=== PATIENT | female | born 1940 | race Caucasian/White ===

== ENCOUNTER 2017-09-29 10:10 | Day surgery (SDC) | payer MEDICARE, BC ==
[~2017-09-29 10:10] MED LIST: Lactated Ringers 1,000 ML IV SCH
[2017-09-29] MEDS ORDERED: Propofol 200 MG/20 ML SDV ONE (11:20)
[2017-09-29] MEDS ORDERED: Ondansetron 4 MG/2 ML SDV ONE (11:29)
[2017-09-29 13:11] VITALS: BP 122/76
--- NOTE | 2017-09-30 08:44 | OR ---
PREOPERATIVE DIAGNOSIS: History of colon polyps. POSTOPERATIVE DIAGNOSIS: History of colon polyps. PROCEDURE PERFORMED: Colonoscopy. INDICATION: The patient is a 77-year-old female with a history of colon polyps. Her last scope was about 3 years ago, presents for repeat colonoscopy at this time. PROCEDURE IN DETAIL: Done in the endoscopy suite. Sedation was given per Anesthesia. She was placed in left lateral position. First, a rectal exam was done, it was normal. Scope was introduced into the rectum, slowly advanced to the rectum, sigmoid, descending, transverse, and ascending colon until the cecum was reached. Upon reaching the cecum, the scope was slowly withdrawn looking at all mucosal surfaces on the way out. No mucosal abnormalities, lesions, or polyps were noted. FINAL DIAGNOSIS: Normal colonoscopy. BKD: 09/29/2017 12:35:23 MODL: 09/29/2017 20:28:13 /[id number]
== END 2017-09-29 13:41 | disposition home or self-care (01) ==
LOC: VM.SDS 10:10
PROVIDERS: ATTEND Surgery
DX: Z12.11 Encounter for screening for malignant neoplasm of colon (principal); E07.9 Disorder of thyroid, unspecified; Z88.8 Allergy status to other drugs, medicaments and biological substances; Z90.49 Acquired absence of other specified parts of digestive tract; Z90.710 Acquired absence of both cervix and uterus; Z98.890 Other specified postprocedural states; Z79.899 Other long term (current) drug therapy; Z86.010 Personal history of colon polyps
CPT/HCPCS: 00812; G0121; J2405; J2704; J7120

== ENCOUNTER 2020-01-22 17:19 | Emergency (ER) | payer MEDICARE, BC ==
[2020-01-22] MEDS ORDERED: fentaNYL 100 MCG/2 ML SDV IM ONE (18:32)
--- NOTE | 2020-01-22 18:33 | EDM.PDOC ---
ED HPI GENERAL MEDICAL PROBLEM - General Chief Complaint: Lower Extremity Injury/Pain Stated Complaint: ER Time Seen by Provider: 01/22/20 17:45 Source of Information: Reports: Patient, Family History Limitations: Reports: No Limitations - History of Present Illness INITIAL COMMENTS - FREE TEXT/NARRATIVE: Patient presents to ER with complaints of right hip pain after a fall. Was out spraying, missed a step and fell and landed on the deck. Landed on right side, has pain with movement of right hip. No head trauma, no loss of consciousness. No anticoagulants. She was assisted to the car by her nephew. States had increased pain with weight bearing. Is currently wearing a cam boot on her left leg from a previous fracture sustained 4 weeks ago. Onset: Today, Sudden Duration: Minutes:, Constant Location: Reports: Lower Extremity, Right Quality: Reports: Ache Severity: Mild Improves with: Reports: Rest Worsens with: Reports: Movement Context: Reports: Trauma Associated Symptoms: Denies: Confusion, Chest Pain, Cough, Fever/Chills, Loss of Appetite, Nausea/Vomiting, Shortness of Breath - Related Data Allergies Allergy/AdvReac Type Severity Reaction Status Date / Time cefadroxil hydrate Allergy Other Verified 09/29/17 10:40 [From [place]] Home Meds: Home Meds Levothyroxine Sodium 50 mcg PO DAILY 12/03/14 [History] Calcium Carbonate [Calcium] 500 mg PO DAILY 09/25/17 [History] Cholecalciferol (Vitamin D3) [D3-2000] 2,000 unit PO DAILY 09/25/17 [History] Fexofenadine [[place]] 180 mg PO DAILY 09/25/17 [History] Glucosam/Chond/Collagen/Hyalur [Glucosamine Chondroitin] 1 cap PO DAILY 09/25/17 [History] Lutein 10 mg PO DAILY 09/25/17 [History] [place]-3 Fatty Acids [[place]-3] 1,000 mg PO DAILY 09/25/17 [History] Ubidecarenone [Co Q-10] 100 mg PO DAILY 09/25/17 [History] Vitamin E 400 unit PO DAILY 09/25/17 [History] Past Medical History Gastrointestinal History: Reports: Colon Polyp [employer] History: Reports: Ectopic , Other (See Below) Other [employer]ITAL[employer] History: ovarian cyst removal Musculoskeletal History: Reports: Osteoarthritis, Other (See Below) Other Musculoskeletal History: bunions. hammer toe. foot deformity Endocrine/Metabolic History: Reports: Hypothyroidism, Osteopenia Hematologic History: Reports: Anemia - Past Surgical History GI Surgical History: Reports: Appendectomy, Colonoscopy Female Surgical History: Reports: D&C, Hysterectomy Social & Family History - Tobacco Use Smoking Status *Q: Unknown Ever Smoked Review of Systems - Review of Systems Review Of Systems: See Below Constitutional: Denies: Chills, Diaphoresis, Fever, Weakness Eyes: Reports: No Symptoms Ears: Denies: Dizziness, Pain, Tinnitus Nose: Reports: No Symptoms Mouth/Throat: Reports: No Symptoms Respiratory: Denies: Shortness of Breath, Cough Cardiovascular: Denies: Chest Pain, Palpitations, Syncope GI/Abdominal: Denies: Abdominal Pain, Nausea, Vomiting Genitourinary: Reports: No Symptoms Musculoskeletal: Reports: Leg Pain, Joint Pain Skin: Reports: No Symptoms ED EXAM, GENERAL - Physical Exam Exam: See Below Exam Limited By: No Limitations General Appearance: Alert, WD/WN, No Apparent Distress Ears: Normal External Exam, Normal TMs Nose: Normal Inspection, Normal Mucosa, No Blood Throat/Mouth: Normal Inspection, Normal Oropharynx Head: Normocephalic Neck: Normal Inspection, Supple, Non-Tender Respiratory/Chest: No Respiratory Distress, Lungs Clear, Normal Breath Sounds Cardiovascular: Regular Rate, Rhythm GI/Abdominal: Normal Bowel Sounds, Soft, Non-Tender Extremities: Leg Pain, Limited Range of Motion, Other (right hip is tender with palpation, increased pain with movement. RLE is externally rotated. Is wearing a cam boot to LLE) Neurological: Alert, Oriented Skin Exam: Warm, Dry Course - Orders/Labs/Meds Orders: Active Orders 24 hr Category Date Time Status Femur Min 2V Rt [CR] Stat Exams 01/22/20 17:45 Taken Meds: Medications Discontinued Medications Generic Name Dose Route Start Last Admin Trade Name Freq PRN Reason Stop Dose Admin Fentanyl 25 mcg 01/22/20 18:32 Sublimaze IM 01/22/20 18:33 ONETIME ONE - Re-Assessments/Exams Free Text/Narrative Re-Assessment/Exam: 01/22/20 18:20 Contacted [facility] and spoke with Dr. Sandoval in regards to positive xray of right intratrochanteric hip fracture. Agreed to accept the patient in transfer. Departure - Departure Time of Disposition: 18:47 Disposition: DC/Tfer to Acute Hospital 02 Condition: Fair Clinical Impression: Intertrochanteric fracture, hip - Discharge Information *PRESCRIPTION DRUG MONITORING PROGRAM REVIEWED*: No *COPY OF PRESCRIPTION DRUG MONITORING REPORT IN PATIENT YADI: No Referrals: Emily Obrien DO [Primary Care Provider] - Forms: ED Department Discharge, Interfacility Transfer [facility]EROY Additional Instructions: Transfer to Dr. Sandoval at [facility] per BLS. Fentanyl given prior to departure. - My Orders Last 24 Hours: My Active Orders 01/22/20 17:45 Femur Min 2V Rt [CR] Stat - Assessment/Plan Last 24 Hours: My Active Orders 01/22/20 17:45 Femur Min 2V Rt [CR] Stat
[2020-01-22 18:46] VITALS: BP 171/85; PULSE 61
--- NOTE | 2020-01-22 19:01 | CR ---
[id number] RAD/RAD Femur Right 2V EXAM: RAD Femur Right 2V CLINICAL DATA: TRAUMA COMPARISON: NO PREVIOUS SIMILAR EXAM IS AVAILABLE. FINDINGS: A subcapital fracture of the right hip is seen with varus angulation. IMPRESSION: RIGHT HIP FRACTURE DESCRIBED Denny Lawson MD 01/22/20 [id number] Thank you for allowing us to participate in the care of your patient.
== END 2020-01-22 19:05 | disposition short-term general hospital (02) ==
LOC: VM.ED 17:19
DX: S72.141A Displaced intertrochanteric fracture of right femur, initial encounter for closed fracture (principal); E03.9 Hypothyroidism, unspecified; Z88.8 Allergy status to other drugs, medicaments and biological substances; Z90.49 Acquired absence of other specified parts of digestive tract; Z90.710 Acquired absence of both cervix and uterus; Z79.899 Other long term (current) drug therapy; W10.9XXA Fall (on) (from) unspecified stairs and steps, initial encounter
CPT/HCPCS: 73552; 96372; 99284; J3010

== ENCOUNTER 2022-11-14 08:15 | Inpatient (IN) | payer MEDICARE, BC ==
[2022-11-14 08:52] LABS: HEMATOCRIT 35.6 % (33.0-47.0); MEAN CORPUSCULAR HEMOGLOBIN 31.9 pg (26.0-32.0); MEAN CORPUSCULAR HGB CONC 33.7 g/dL (32.0-36.0); MEAN CORPUSCULAR VOLUME 94.7 fL (78.0-93.0); PLATELET COUNT,PLT 81 x10^3/uL (130-400); RED BLOOD CELL COUNT 3.76 x10^6/uL (4.00-5.50)
[2022-11-14 08:55] LABS: WHITE BLOOD CELL COUNT,WBC 20.6 x10^3/uL (4.0-10.0)
[2022-11-14 09:05] LABS: BLOOD UREA NITROGEN,BUN 31 mg/dL (7-18); CALCIUM 8.7 mg/dL (8.5-10.1); CARBON DIOXIDE,CO2 21 mmol/L (21-32); CHLORIDE,CL 105 mmol/L (98-107); CREATININE 2.3 mg/dL (0.55-1.02); GLUCOSE RANDOM 98 mg/dL (70-99); SODIUM,NA 142 mmol/L (136-145)
[2022-11-14 09:09] LABS: LACTIC ACID 4.9 mmol/L (0.4-2.0)
[2022-11-14 09:10] LABS: ESTIMATED GFR 20 mL/min (>=60)
[2022-11-14] MEDS ORDERED: cefTRIAXone 1 GM Vial IVPUSH ONE (09:10)
[2022-11-14] MEDS ORDERED: Sodium Chloride 0.9% 1,000 ML IV ONE ×2 (09:18)
[2022-11-14 09:25] LABS: BAND PERCENT MAN 11 % (0-6); BASOPHILS PERCENT MAN 1 % (0-1); LYMPHOCYTES PERCENT MAN 8 % (25-50); MONOCYTES PERCENT MAN 6 % (2-11); NEUTROPHILS ABSOLUTE MAN 20.6 x10^3/uL (1.8-7.7)
[2022-11-14 09:26] LABS: EOSINOPHILS PERCENT MAN 3 % (0-4); SEG NEUTROPHILS PERCENT MAN 71 % (50-80)
[2022-11-14 09:27] LABS: PLATELET COUNT ESTIMATE ADEQUATE
[2022-11-14 09:33] LABS: APPEARANCE,URINE CLEAR (CLEAR); BILIRUBIN,URINE MODERATE (NEGATIVE); COLOR,URINE AMBER (YELLOW); GLUCOSE,URINE NEGATIVE (NEGATIVE); KETONES,URINE TRACE mg/dL (NEGATIVE); LEUKOCYTE ESTERASE,URINE NEGATIVE (NEGATIVE); NITRITE,URINE NEGATIVE (NEGATIVE); OCCULT BLOOD,URINE TRACE-INTACT (NEGATIVE); PROTEIN,URINE 30 mg/dL (NEGATIVE); UROBILINOGEN,URINE 0.2 EU/dL (0.2)
[2022-11-14 09:46] LABS: RBC,URINE 0-5 /HPF (NOT SEEN)
[2022-11-14 09:47] LABS: BACTERIA,URINE NOT SEEN /HPF (NOT SEEN); HYALINE CASTS,URINE RARE; MUCUS,URINE NOT SEEN /LPF (NOT SEEN); SQUAMOUS EPITHELIAL CELLS,UR NOT SEEN /HPF (NOT SEEN); WBC,URINE 0-5 /HPF (NOT SEEN)
[2022-11-14] MEDS ORDERED: Ondansetron 4 MG Tab.DIS PO PRN (11:59)
[2022-11-14] MEDS: Sodium Chloride 0.9% 1,000 ML IV SCH ×2 (13:19→22:48)
[2022-11-14 13:58] LABS: LACTIC ACID 2.9 mmol/L (0.4-2.0)
[2022-11-14 14:18] LABS: CORONAVIRUS COVID-19 NAA NEGATIVE (NEGATIVE)
[2022-11-14 14:19] LABS: INFLUENZA A NAA NEGATIVE (NEGATIVE); INFLUENZA B NAA NEGATIVE (NEGATIVE); RESPIRATORY SYNCYTIAL VIR NAA NEGATIVE (NEGATIVE)
[2022-11-14] MEDS: Piperacillin/Tazobactam 3.375 GM in Sodium Chloride 0.9% 100 ML IV SCH (18:37)
[2022-11-14] MEDS ORDERED: Sodium Chloride 0.9% 500 ML IV ONE (18:55)
[2022-11-14] MEDS: Sennosides 8.6 MG Tab PO SCH (20:57)
[2022-11-14] MEDS: Beta-Carotene (Vitamin A) w/Vitamin C & E plus Minerals Tab PO SCH (20:59)
[2022-11-14] MEDS: Heparin Sodium 5,000 Units/ML Vial SUBCUT SCH ×2 (21:00→21:26)
[2022-11-14] MEDS ORDERED: Heparin Sodium 5,000 Units/ML Vial SUBCUT SCH (21:00)
[2022-11-15] MEDS: Piperacillin/Tazobactam 3.375 GM in Sodium Chloride 0.9% 100 ML IV SCH ×2 (06:06→18:53)
[2022-11-15] MEDS: Sodium Chloride 0.9% 1,000 ML IV SCH ×2 (06:12→20:53)
[2022-11-15] MEDS: Heparin Sodium 5,000 Units/ML Vial SUBCUT SCH (06:33)
[2022-11-15 06:40] LABS: BILIRUBIN,URINE NEGATIVE (NEGATIVE); COLOR,URINE YELLOW (YELLOW); GLUCOSE,URINE NEGATIVE (NEGATIVE); KETONES,URINE NEGATIVE (NEGATIVE); LEUKOCYTE ESTERASE,URINE NEGATIVE (NEGATIVE); NITRITE,URINE NEGATIVE (NEGATIVE); OCCULT BLOOD,URINE NEGATIVE (NEGATIVE); PH,URINE 5.5 (5.0-8.0); PROTEIN,URINE TRACE mg/dL (NEGATIVE); UROBILINOGEN,URINE 0.2 EU/dL (0.2)
[2022-11-15 06:41] LABS: APPEARANCE,URINE CLEAR (CLEAR)
[2022-11-15 06:42] LABS: HEMATOCRIT 31.3 % (33.0-47.0); HEMOGLOBIN 10.4 g/dL (12.0-16.0); MEAN CORPUSCULAR HEMOGLOBIN 31.7 pg (26.0-32.0); MEAN CORPUSCULAR HGB CONC 33.2 g/dL (32.0-36.0); MEAN CORPUSCULAR VOLUME 95.4 fL (78.0-93.0); PLATELET COUNT,PLT 74 x10^3/uL (130-400); RED BLOOD CELL COUNT 3.28 x10^6/uL (4.00-5.50); WHITE BLOOD CELL COUNT,WBC 15.2 x10^3/uL (4.0-10.0)
[2022-11-15 06:50] LABS: BACTERIA,URINE RARE /HPF (NOT SEEN); HYALINE CASTS,URINE FEW; MUCUS,URINE OCCASIONAL /LPF (NOT SEEN); RBC,URINE 0-5 /HPF (NOT SEEN); SQUAMOUS EPITHELIAL CELLS,UR FEW /HPF (NOT SEEN); WBC,URINE 0-5 /HPF (NOT SEEN)
[2022-11-15] MEDS: Levothyroxine 25 MCG Tab PO SCH (07:04)
[2022-11-15] MEDS: Levothyroxine 50 MCG Tab PO SCH (07:04)
[2022-11-15 07:11] LABS: A/G RATIO 0.78; ALBUMIN 2.1 g/dL (3.4-5.0); ANION GAP 15.4 mmol/L (5-15); BILIRUBIN TOTAL 1.6 mg/dL (0.2-1.0); CALCIUM 7.2 mg/dL (8.5-10.1); CREATININE 1.3 mg/dL (0.55-1.02); EST CRCL DRUG DOSING (CG) 23.14 mL/min; POTASSIUM,K 3.4 mmol/L (3.5-5.1); PROTEIN TOTAL,TP 4.8 g/dL (6.4-8.2); VANCOMYCIN RANDOM 7.7 ug/mL (5.0-10.0)
[2022-11-15 07:12] LABS: BAND PERCENT MAN 19 % (0-6); LYMPHOCYTES ABSOLUTE MAN 0.9 x10^3/uL (1.0-4.8); LYMPHOCYTES PERCENT MAN 6 % (25-50); MONOCYTES ABSOLUTE MAN 0.3 x10^3/uL (0.0-0.8); MONOCYTES PERCENT MAN 2 % (2-11); MYELOCYTE PERCENT MAN 5 % (0); NEUTROPHILS ABSOLUTE MAN 12.9 x10^3/uL (1.8-7.7); PROMYELOCYTE PERCENT MAN 2 % (0); SEG NEUTROPHILS PERCENT MAN 66 % (50-80)
[2022-11-15 07:14] LABS: HYPOCHROMASIA 2+ MODERATE; PLATELET COUNT ESTIMATE DECREASED
[2022-11-15] MEDS ORDERED: Potassium Chloride 20 MEQ Tab.ER PO ONE (08:10)
[2022-11-15] MEDS ORDERED: Calcium Carbonate 750 MG Tab.Chew PO ONE (09:00)
[2022-11-15] MEDS: Ascorbic Acid 500 MG Tab PO SCH (09:58)
[2022-11-15] MEDS: Beta-Carotene (Vitamin A) w/Vitamin C & E plus Minerals Tab PO SCH ×2 (09:58→20:52)
[2022-11-15] MEDS: Magnesium Chloride 64 MG Tab.ER PO SCH (09:58)
[2022-11-15] MEDS: Calcium Carbonate/Vitamin D3 1250 MG-5 MCG Tab PO SCH ×2 (09:59→10:20)
[2022-11-15] MEDS: Cholecalciferol (Vitamin D3) 25 MCG Tab PO SCH (09:59)
[2022-11-15] MEDS: UBIDECARENONE 10 MG PO SCH (10:51)
[2022-11-15] MEDS: Acetaminophen 325 MG Tab PO PRN (17:56)
[2022-11-15] MEDS: Sennosides 8.6 MG Tab PO SCH (20:52)
[2022-11-16] MEDS: Levothyroxine 25 MCG Tab PO SCH (06:03)
[2022-11-16] MEDS: Levothyroxine 50 MCG Tab PO SCH (06:03)
[2022-11-16] MEDS: Piperacillin/Tazobactam 3.375 GM in Sodium Chloride 0.9% 100 ML IV SCH ×2 (06:04→18:47)
[2022-11-16 08:11] LABS: BASOPHILS PERCENT AUTO 0.2 % (0.2-1.2); EOSINOPHILS ABSOLUTE AUTO 0.3 x10^3/uL (0.0-0.5); EOSINOPHILS PERCENT AUTO 2.5 % (0.0-4.0); HEMATOCRIT 32.5 % (33.0-47.0); IMMATURE GRAN ABSOLUTE AUTO 0.03 x10^3/uL (0.00-0.07); LYMPHOCYTES ABSOLUTE AUTO 0.5 x10^3/uL (1.0-4.8); LYMPHOCYTES PERCENT AUTO 4.6 % (25.0-50.0); MEAN CORPUSCULAR HEMOGLOBIN 32.4 pg (26.0-32.0); MEAN CORPUSCULAR HGB CONC 33.8 g/dL (32.0-36.0); MEAN CORPUSCULAR VOLUME 95.6 fL (78.0-93.0); MONOCYTES ABSOLUTE AUTO 0.4 x10^3/uL (0.0-0.8); MONOCYTES PERCENT AUTO 3.2 % (2.0-11.0); NEUTROPHILS ABSOLUTE AUTO 10.5 x10^3/uL (1.8-7.7); PLATELET COUNT,PLT 81 x10^3/uL (130-400); WHITE BLOOD CELL COUNT,WBC 11.7 x10^3/uL (4.0-10.0)
[2022-11-16] MEDS: Ascorbic Acid 500 MG Tab PO SCH (08:32)
[2022-11-16] MEDS: Cholecalciferol (Vitamin D3) 25 MCG Tab PO SCH (08:32)
[2022-11-16] MEDS: Magnesium Chloride 64 MG Tab.ER PO SCH (08:32)
[2022-11-16] MEDS: Beta-Carotene (Vitamin A) w/Vitamin C & E plus Minerals Tab PO SCH ×2 (08:32→21:06)
[2022-11-16] MEDS: UBIDECARENONE 10 MG PO SCH (08:34)
[2022-11-16 08:37] LABS: A/G RATIO 0.71; ALBUMIN 2.2 g/dL (3.4-5.0); ANION GAP 14.3 mmol/L (5-15); BILIRUBIN TOTAL 1.4 mg/dL (0.2-1.0); CALCIUM 8.3 mg/dL (8.5-10.1); CREATININE 0.9 mg/dL (0.55-1.02); EST CRCL DRUG DOSING (CG) 33.42 mL/min; POTASSIUM,K 4.3 mmol/L (3.5-5.1); PROTEIN TOTAL,TP 5.3 g/dL (6.4-8.2)
[2022-11-16] MEDS: Calcium Carbonate/Vitamin D3 1250 MG-5 MCG Tab PO SCH (08:38)
[2022-11-16 08:44] LABS: NEUTROPHILS PERCENT AUTO 89.2 % (50.0-80.0)
[2022-11-16] MEDS: Sodium Chloride 0.9% 10 ML Syringe FLUSH PRN ×2 (11:23→18:51)
[2022-11-16] MEDS ORDERED: Iopamidol 612 MG/ML 30 ML SDV PO ONE (12:35)
[2022-11-16] MEDS ORDERED: Iopamidol 612 MG/ML 100 ML Bottle IVPUSH ONE (12:35)
[2022-11-16] MEDS: Heparin Sodium 5,000 Units/ML Vial SUBCUT SCH ×2 (13:01→21:06)
[2022-11-16] MEDS: Sennosides 8.6 MG Tab PO SCH (21:06)
[2022-11-16] MEDS: Acetaminophen 325 MG Tab PO PRN (21:15)
[2022-11-17] MEDS: Heparin Sodium 5,000 Units/ML Vial SUBCUT SCH ×3 (04:25→20:21)
[2022-11-17] MEDS: Piperacillin/Tazobactam 3.375 GM in Sodium Chloride 0.9% 100 ML IV SCH ×2 (06:22→18:20)
[2022-11-17] MEDS: Levothyroxine 25 MCG Tab PO SCH (06:25)
[2022-11-17] MEDS: Levothyroxine 50 MCG Tab PO SCH (06:25)
[2022-11-17] MEDS ORDERED: Furosemide 20 MG/2 ML VIAL IV ONE (07:49)
[2022-11-17] MEDS ORDERED: Aluminum Hydroxide/Magnesium Hydroxide/Simethicone Susp 30 ML Cup PO PRN (07:51)
[2022-11-17 08:14] LABS: BASOPHILS PERCENT AUTO 0.3 % (0.2-1.2); EOSINOPHILS ABSOLUTE AUTO 0.4 x10^3/uL (0.0-0.5); EOSINOPHILS PERCENT AUTO 5.9 % (0.0-4.0); HEMATOCRIT 32.2 % (33.0-47.0); HEMOGLOBIN 10.9 g/dL (12.0-16.0); IMMATURE GRAN ABSOLUTE AUTO 0.06 x10^3/uL (0.00-0.07); LYMPHOCYTES ABSOLUTE AUTO 0.8 x10^3/uL (1.0-4.8); LYMPHOCYTES PERCENT AUTO 12.7 % (25.0-50.0); MEAN CORPUSCULAR HEMOGLOBIN 31.8 pg (26.0-32.0); MEAN CORPUSCULAR HGB CONC 33.9 g/dL (32.0-36.0); MEAN CORPUSCULAR VOLUME 93.9 fL (78.0-93.0); MONOCYTES ABSOLUTE AUTO 0.4 x10^3/uL (0.0-0.8); MONOCYTES PERCENT AUTO 5.9 % (2.0-11.0); NEUTROPHILS ABSOLUTE AUTO 4.8 x10^3/uL (1.8-7.7); NEUTROPHILS PERCENT AUTO 74.3 % (50.0-80.0); PLATELET COUNT,PLT 84 x10^3/uL (130-400); RED BLOOD CELL COUNT 3.43 x10^6/uL (4.00-5.50); WHITE BLOOD CELL COUNT,WBC 6.5 x10^3/uL (4.0-10.0)
[2022-11-17 08:44] LABS: A/G RATIO 0.77; ALBUMIN 2.3 g/dL (3.4-5.0); BILIRUBIN TOTAL 1.5 mg/dL (0.2-1.0); CALCIUM 8.6 mg/dL (8.5-10.1); CREATININE 0.8 mg/dL (0.55-1.02); EST CRCL DRUG DOSING (CG) 37.6 mL/min; POTASSIUM,K 4.1 mmol/L (3.5-5.1); PROTEIN TOTAL,TP 5.3 g/dL (6.4-8.2)
[2022-11-17 08:46] LABS: ANION GAP 13.1 mmol/L (5-15)
[2022-11-17] MEDS: Beta-Carotene (Vitamin A) w/Vitamin C & E plus Minerals Tab PO SCH ×2 (09:20→20:20)
[2022-11-17] MEDS: UBIDECARENONE 10 MG PO SCH (09:21)
[2022-11-17] MEDS: Magnesium Chloride 64 MG Tab.ER PO SCH ×2 (09:21→20:20)
[2022-11-17] MEDS: Cholecalciferol (Vitamin D3) 25 MCG Tab PO SCH (09:21)
[2022-11-17] MEDS: Calcium Carbonate/Vitamin D3 1250 MG-5 MCG Tab PO SCH (09:21)
[2022-11-17] MEDS: Ascorbic Acid 500 MG Tab PO SCH (09:21)
[2022-11-17] MEDS: Sennosides 8.6 MG Tab PO SCH (20:20)
[2022-11-17 20:35] LABS: APPEARANCE,URINE CLEAR (CLEAR); BILIRUBIN,URINE NEGATIVE (NEGATIVE); COLOR,URINE YELLOW (YELLOW); GLUCOSE,URINE NEGATIVE (NEGATIVE); KETONES,URINE NEGATIVE (NEGATIVE); LEUKOCYTE ESTERASE,URINE NEGATIVE (NEGATIVE); NITRITE,URINE NEGATIVE (NEGATIVE); OCCULT BLOOD,URINE NEGATIVE (NEGATIVE); PH,URINE 5.5 (5.0-8.0); PROTEIN,URINE NEGATIVE (NEGATIVE); UROBILINOGEN,URINE 0.2 EU/dL (0.2)
[2022-11-17] MEDS: Acetaminophen 325 MG Tab PO PRN (23:23)
[2022-11-18] MEDS: Heparin Sodium 5,000 Units/ML Vial SUBCUT SCH ×2 (05:01→12:01)
[2022-11-18] MEDS: Levothyroxine 25 MCG Tab PO SCH (06:24)
[2022-11-18] MEDS: Levothyroxine 50 MCG Tab PO SCH (06:25)
[2022-11-18] MEDS: Piperacillin/Tazobactam 3.375 GM in Sodium Chloride 0.9% 100 ML IV SCH (06:25)
[2022-11-18 06:39] VITALS: PULSE 59
[2022-11-18 06:49] LABS: HEMATOCRIT 32.9 % (33.0-47.0); HEMOGLOBIN 11.1 g/dL (12.0-16.0); MEAN CORPUSCULAR HEMOGLOBIN 31.6 pg (26.0-32.0); MEAN CORPUSCULAR HGB CONC 33.7 g/dL (32.0-36.0); MEAN CORPUSCULAR VOLUME 93.7 fL (78.0-93.0); PLATELET COUNT,PLT 101 x10^3/uL (130-400); RED BLOOD CELL COUNT 3.51 x10^6/uL (4.00-5.50); WHITE BLOOD CELL COUNT,WBC 5.3 x10^3/uL (4.0-10.0)
[2022-11-18 07:17] LABS: A/G RATIO 0.74; ALBUMIN 2.3 g/dL (3.4-5.0); C-REACTIVE PROTEIN 4.41 mg/dL (<=0.30); CALCIUM 8.7 mg/dL (8.5-10.1); CREATININE 0.9 mg/dL (0.55-1.02); EST CRCL DRUG DOSING (CG) 33.42 mL/min; MAGNESIUM 1.7 mg/dL (1.8-2.4); POTASSIUM,K 3.6 mmol/L (3.5-5.1); PROTEIN TOTAL,TP 5.4 g/dL (6.4-8.2)
[2022-11-18 07:18] LABS: ANION GAP 11.6 mmol/L (5-15)
[2022-11-18 07:21] LABS: BAND PERCENT MAN 9 % (0-6); BASOPHILS ABSOLUTE MAN 0.1 x10^3/uL (0.0-0.2); BASOPHILS PERCENT MAN 1 % (0-1); EOSINOPHILS ABSOLUTE MAN 0.2 x10^3/uL (0.0-0.5); EOSINOPHILS PERCENT MAN 3 % (0-4); LYMPHOCYTES ABSOLUTE MAN 1.2 x10^3/uL (1.0-4.8); LYMPHOCYTES PERCENT MAN 23 % (25-50); METAMYELOCYTE PERCENT MAN 2 % (0); MONOCYTES ABSOLUTE MAN 0.4 x10^3/uL (0.0-0.8); MONOCYTES PERCENT MAN 7 % (2-11); NEUTROPHILS ABSOLUTE MAN 3.4 x10^3/uL (1.8-7.7); SEG NEUTROPHILS PERCENT MAN 55 % (50-80)
[2022-11-18 07:23] LABS: PLATELET COUNT ESTIMATE DECREASED
[2022-11-18] MEDS: Magnesium Chloride 64 MG Tab.ER PO SCH (08:54)
[2022-11-18] MEDS: Calcium Carbonate/Vitamin D3 1250 MG-5 MCG Tab PO SCH (08:54)
[2022-11-18] MEDS: Beta-Carotene (Vitamin A) w/Vitamin C & E plus Minerals Tab PO SCH (08:54)
[2022-11-18] MEDS: Ascorbic Acid 500 MG Tab PO SCH (08:55)
[2022-11-18] MEDS: Cholecalciferol (Vitamin D3) 25 MCG Tab PO SCH (08:55)
[2022-11-18] MEDS: UBIDECARENONE 10 MG PO SCH (08:57)
[2022-11-18 13:40] VITALS: BP 154/87
== END 2022-11-18 15:46 | disposition swing bed (61) | DRG 872 ==
LOC: VM.ED 08:15 → VM.MS 11:59
PROVIDERS: ADMIT Physician Assistant Medical; ATTEND Family Medicine
DX: A41.9 Sepsis, unspecified organism (principal); I95.89 Other hypotension; R40.2412 Glasgow coma scale score 13-15, at arrival to emergency department; Z66 Do not resuscitate; N17.9 Acute kidney failure, unspecified; E78.5 Hyperlipidemia, unspecified; E78.00 Pure hypercholesterolemia, unspecified; E03.9 Hypothyroidism, unspecified; M85.80 Other specified disorders of bone density and structure, unspecified site; K59.00 Constipation, unspecified; R00.1 Bradycardia, unspecified; D50.9 Iron deficiency anemia, unspecified; K57.90 Diverticulosis of intestine, part unspecified, without perforation or abscess without bleeding; R10.13 Epigastric pain; M19.90 Unspecified osteoarthritis, unspecified site; Z79.82 Long term (current) use of aspirin; Z79.899 Other long term (current) drug therapy; Z90.710 Acquired absence of both cervix and uterus; Z86.010 Personal history of colon polyps; Z98.890 Other specified postprocedural states; Z90.49 Acquired absence of other specified parts of digestive tract
CPT/HCPCS: 0241U; 36415; 70450; 70551; 71045; 74177; 80048; 80053; 80202; 81001; 81003; 83605; 83690; 83735; 83880; 84145; 84484; 85025; 86140; 87040; 93005; 93010; 95851; 97162; 97166; 97535; 99284; A9270-GY; J0696; J1644; J1940; J2543; J3370; J3490; J7030; J7050; Q9967

== ENCOUNTER 2022-11-18 09:51 | Inpatient (IN) | payer MEDICARE, BC ==
[2022-11-18] MEDS ORDERED: Sodium Chloride 0.9% 10 ML Syringe FLUSH PRN ×2 (15:34)
[2022-11-18] MEDS ORDERED: Aluminum Hydroxide/Magnesium Hydroxide/Simethicone Susp 30 ML Cup PO PRN (15:34)
[2022-11-18] MEDS: Magnesium Chloride 64 MG Tab.ER PO SCH (20:24)
[2022-11-18] MEDS: Sennosides 8.6 MG Tab PO SCH (20:26)
[2022-11-18] MEDS: Amoxicillin/Clavulanate K 875-125 MG Tab PO SCH (20:27)
[2022-11-18] MEDS: Heparin Sodium 5,000 Units/ML Vial SUBCUT SCH (20:27)
[2022-11-18] MEDS: Beta-Carotene (Vitamin A) w/Vitamin C & E plus Minerals Tab PO SCH (20:27)
[2022-11-19] MEDS: Heparin Sodium 5,000 Units/ML Vial SUBCUT SCH ×3 (05:56→20:58)
[2022-11-19] MEDS: Levothyroxine 50 MCG Tab PO SCH (06:03)
[2022-11-19] MEDS: Levothyroxine 25 MCG Tab PO SCH (06:03)
[2022-11-19 07:16] LABS: HEMATOCRIT 34.6 % (33.0-47.0); HEMOGLOBIN 11.8 g/dL (12.0-16.0); MEAN CORPUSCULAR HEMOGLOBIN 31.7 pg (26.0-32.0); MEAN CORPUSCULAR HGB CONC 34.1 g/dL (32.0-36.0); RED BLOOD CELL COUNT 3.72 x10^6/uL (4.00-5.50); WHITE BLOOD CELL COUNT,WBC 5.2 x10^3/uL (4.0-10.0)
[2022-11-19 07:40] LABS: A/G RATIO 0.69; ALBUMIN 2.4 g/dL (3.4-5.0); BILIRUBIN TOTAL 0.9 mg/dL (0.2-1.0); CALCIUM 8.7 mg/dL (8.5-10.1); CREATININE 0.7 mg/dL (0.55-1.02); EST CRCL DRUG DOSING (CG) 42.97 mL/min; MAGNESIUM 1.7 mg/dL (1.8-2.4); POTASSIUM,K 3.6 mmol/L (3.5-5.1); PROTEIN TOTAL,TP 5.9 g/dL (6.4-8.2)
[2022-11-19 07:50] LABS: ANION GAP 12.6 mmol/L (5-15)
[2022-11-19] MEDS: Ascorbic Acid 500 MG Tab PO SCH (10:01)
[2022-11-19] MEDS: Cholecalciferol (Vitamin D3) 25 MCG Tab PO SCH (10:01)
[2022-11-19] MEDS: Magnesium Chloride 64 MG Tab.ER PO SCH ×2 (10:01→20:57)
[2022-11-19] MEDS: Beta-Carotene (Vitamin A) w/Vitamin C & E plus Minerals Tab PO SCH ×2 (10:02→20:57)
[2022-11-19] MEDS: Calcium Carbonate/Vitamin D3 1250 MG-5 MCG Tab PO SCH (10:02)
[2022-11-19] MEDS: Amoxicillin/Clavulanate K 875-125 MG Tab PO SCH ×2 (10:03→20:57)
[2022-11-19] MEDS: Acetaminophen 325 MG Tab PO PRN (17:02)
[2022-11-19] MEDS: Sennosides 8.6 MG Tab PO SCH (20:57)
[2022-11-19] MEDS: Ondansetron 4 MG Tab.DIS PO PRN (23:49)
[2022-11-20] MEDS: Heparin Sodium 5,000 Units/ML Vial SUBCUT SCH ×3 (04:30→20:27)
[2022-11-20] MEDS: Levothyroxine 50 MCG Tab PO SCH (06:49)
[2022-11-20] MEDS: Levothyroxine 25 MCG Tab PO SCH (06:49)
[2022-11-20] MEDS: Magnesium Chloride 64 MG Tab.ER PO SCH ×2 (08:56→20:26)
[2022-11-20] MEDS: Amoxicillin/Clavulanate K 875-125 MG Tab PO SCH ×2 (08:56→20:26)
[2022-11-20] MEDS: Ascorbic Acid 500 MG Tab PO SCH (08:56)
[2022-11-20] MEDS: Cholecalciferol (Vitamin D3) 25 MCG Tab PO SCH (08:56)
[2022-11-20] MEDS: Beta-Carotene (Vitamin A) w/Vitamin C & E plus Minerals Tab PO SCH ×2 (08:56→20:26)
[2022-11-20] MEDS: Calcium Carbonate/Vitamin D3 1250 MG-5 MCG Tab PO SCH (09:06)
[2022-11-20] MEDS: Sennosides 8.6 MG Tab PO SCH (20:27)
[2022-11-21] MEDS: Heparin Sodium 5,000 Units/ML Vial SUBCUT SCH ×3 (06:28→20:08)
[2022-11-21] MEDS: Levothyroxine 25 MCG Tab PO SCH (06:29)
[2022-11-21] MEDS: Levothyroxine 50 MCG Tab PO SCH (06:29)
[2022-11-21] MEDS: Ondansetron 4 MG Tab.DIS PO PRN (07:03)
[2022-11-21] MEDS: Cholecalciferol (Vitamin D3) 25 MCG Tab PO SCH (08:47)
[2022-11-21] MEDS: Calcium Carbonate/Vitamin D3 1250 MG-5 MCG Tab PO SCH (08:47)
[2022-11-21] MEDS: Amoxicillin/Clavulanate K 875-125 MG Tab PO SCH ×2 (08:47→20:09)
[2022-11-21] MEDS: Ascorbic Acid 500 MG Tab PO SCH (08:47)
[2022-11-21] MEDS: Beta-Carotene (Vitamin A) w/Vitamin C & E plus Minerals Tab PO SCH ×2 (08:47→20:09)
[2022-11-21] MEDS: Magnesium Chloride 64 MG Tab.ER PO SCH ×2 (08:47→20:09)
[2022-11-21] MEDS: UBIDECARENONE 10 MG PO SCH (08:48)
[2022-11-21] MEDS: Lisinopril 10 MG Tab PO SCH (12:01)
[2022-11-21] MEDS: Aspirin 325 MG Tab.EC PO SCH (12:01)
[2022-11-21] MEDS: Sennosides 8.6 MG Tab PO SCH (20:09)
[2022-11-21] MEDS: Rosuvastatin 20 MG Tab PO SCH (20:09)
[2022-11-22] MEDS: Heparin Sodium 5,000 Units/ML Vial SUBCUT SCH ×3 (05:53→20:00)
[2022-11-22] MEDS: Levothyroxine 50 MCG Tab PO SCH (06:00)
[2022-11-22] MEDS: Levothyroxine 25 MCG Tab PO SCH (06:00)
[2022-11-22 07:07] LABS: HEMATOCRIT 35.9 % (33.0-47.0); HEMOGLOBIN 11.9 g/dL (12.0-16.0); MEAN CORPUSCULAR HEMOGLOBIN 31.4 pg (26.0-32.0); MEAN CORPUSCULAR HGB CONC 33.1 g/dL (32.0-36.0); MEAN CORPUSCULAR VOLUME 94.7 fL (78.0-93.0); RED BLOOD CELL COUNT 3.79 x10^6/uL (4.00-5.50); WHITE BLOOD CELL COUNT,WBC 6.2 x10^3/uL (4.0-10.0)
[2022-11-22 07:30] LABS: CALCIUM 8.7 mg/dL (8.5-10.1); CREATININE 0.8 mg/dL (0.55-1.02); EST CRCL DRUG DOSING (CG) 37.6 mL/min
[2022-11-22] MEDS: Magnesium Chloride 64 MG Tab.ER PO SCH ×2 (10:05→20:00)
[2022-11-22] MEDS: Lisinopril 10 MG Tab PO SCH (10:05)
[2022-11-22] MEDS: Aspirin 325 MG Tab.EC PO SCH (10:06)
[2022-11-22] MEDS: Cholecalciferol (Vitamin D3) 25 MCG Tab PO SCH (10:06)
[2022-11-22] MEDS: Calcium Carbonate/Vitamin D3 1250 MG-5 MCG Tab PO SCH (10:06)
[2022-11-22] MEDS: Ascorbic Acid 500 MG Tab PO SCH (10:06)
[2022-11-22] MEDS: Amoxicillin/Clavulanate K 875-125 MG Tab PO SCH ×2 (10:07→20:00)
[2022-11-22] MEDS: Beta-Carotene (Vitamin A) w/Vitamin C & E plus Minerals Tab PO SCH ×2 (10:07→20:00)
[2022-11-22] MEDS: UBIDECARENONE 10 MG PO SCH (10:33)
[2022-11-22] MEDS: Sennosides 8.6 MG Tab PO SCH (20:00)
[2022-11-22] MEDS: Rosuvastatin 20 MG Tab PO SCH (20:00)
[2022-11-23] MEDS: Acetaminophen 325 MG Tab PO PRN ×2 (00:47→21:25)
[2022-11-23] MEDS: Heparin Sodium 5,000 Units/ML Vial SUBCUT SCH ×3 (06:03→20:00)
[2022-11-23] MEDS: Levothyroxine 25 MCG Tab PO SCH (06:04)
[2022-11-23] MEDS: Levothyroxine 50 MCG Tab PO SCH (06:04)
[2022-11-23] MEDS: Calcium Carbonate/Vitamin D3 1250 MG-5 MCG Tab PO SCH (09:57)
[2022-11-23] MEDS: Cholecalciferol (Vitamin D3) 25 MCG Tab PO SCH (09:57)
[2022-11-23] MEDS: Ascorbic Acid 500 MG Tab PO SCH (09:57)
[2022-11-23] MEDS: Magnesium Chloride 64 MG Tab.ER PO SCH ×2 (09:57→20:00)
[2022-11-23] MEDS: Amoxicillin/Clavulanate K 875-125 MG Tab PO SCH ×2 (09:57→20:00)
[2022-11-23] MEDS: Beta-Carotene (Vitamin A) w/Vitamin C & E plus Minerals Tab PO SCH ×2 (09:57→20:00)
[2022-11-23] MEDS: Aspirin 325 MG Tab.EC PO SCH (09:57)
[2022-11-23] MEDS: Lisinopril 10 MG Tab PO SCH (09:58)
[2022-11-23] MEDS: UBIDECARENONE 10 MG PO SCH (12:54)
[2022-11-23] MEDS: Rosuvastatin 20 MG Tab PO SCH (20:00)
[2022-11-23] MEDS: Sennosides 8.6 MG Tab PO SCH (20:00)
[2022-11-24] MEDS: Heparin Sodium 5,000 Units/ML Vial SUBCUT SCH ×3 (05:58→20:35)
[2022-11-24] MEDS: Levothyroxine 25 MCG Tab PO SCH (06:00)
[2022-11-24] MEDS: Levothyroxine 50 MCG Tab PO SCH (06:00)
[2022-11-24] MEDS: Cholecalciferol (Vitamin D3) 25 MCG Tab PO SCH (08:58)
[2022-11-24] MEDS: Lisinopril 10 MG Tab PO SCH (08:59)
[2022-11-24] MEDS: Beta-Carotene (Vitamin A) w/Vitamin C & E plus Minerals Tab PO SCH ×2 (08:59→20:35)
[2022-11-24] MEDS: Ascorbic Acid 500 MG Tab PO SCH (08:59)
[2022-11-24] MEDS: Magnesium Chloride 64 MG Tab.ER PO SCH ×2 (08:59→20:35)
[2022-11-24] MEDS: Aspirin 325 MG Tab.EC PO SCH (08:59)
[2022-11-24] MEDS: Calcium Carbonate/Vitamin D3 1250 MG-5 MCG Tab PO SCH (09:00)
[2022-11-24] MEDS: Amoxicillin/Clavulanate K 875-125 MG Tab PO SCH ×2 (09:00→20:35)
[2022-11-24] MEDS: UBIDECARENONE 10 MG PO SCH (09:01)
[2022-11-24] MEDS: Sennosides 8.6 MG Tab PO SCH (20:35)
[2022-11-24] MEDS: Rosuvastatin 20 MG Tab PO SCH (20:35)
[2022-11-24] MEDS: Acetaminophen 325 MG Tab PO PRN (20:38)
[2022-11-25] MEDS: Heparin Sodium 5,000 Units/ML Vial SUBCUT SCH ×3 (05:59→20:07)
[2022-11-25] MEDS: Levothyroxine 25 MCG Tab PO SCH (06:24)
[2022-11-25] MEDS: Levothyroxine 50 MCG Tab PO SCH (06:25)
[2022-11-25 07:05] LABS: HEMATOCRIT 34.6 % (33.0-47.0); HEMOGLOBIN 11.5 g/dL (12.0-16.0); MEAN CORPUSCULAR HEMOGLOBIN 31.5 pg (26.0-32.0); MEAN CORPUSCULAR HGB CONC 33.2 g/dL (32.0-36.0); MEAN CORPUSCULAR VOLUME 94.8 fL (78.0-93.0); RED BLOOD CELL COUNT 3.65 x10^6/uL (4.00-5.50); WHITE BLOOD CELL COUNT,WBC 4.3 x10^3/uL (4.0-10.0)
[2022-11-25] MEDS: Ascorbic Acid 500 MG Tab PO SCH (09:27)
[2022-11-25] MEDS: Cholecalciferol (Vitamin D3) 25 MCG Tab PO SCH (09:27)
[2022-11-25] MEDS: Aspirin 325 MG Tab.EC PO SCH (09:27)
[2022-11-25] MEDS: Lisinopril 10 MG Tab PO SCH (09:27)
[2022-11-25] MEDS: Beta-Carotene (Vitamin A) w/Vitamin C & E plus Minerals Tab PO SCH ×2 (09:27→20:07)
[2022-11-25] MEDS: Magnesium Chloride 64 MG Tab.ER PO SCH ×2 (09:27→20:07)
[2022-11-25] MEDS: Calcium Carbonate/Vitamin D3 1250 MG-5 MCG Tab PO SCH (09:27)
[2022-11-25] MEDS: UBIDECARENONE 10 MG PO SCH (09:29)
[2022-11-25] MEDS: Sennosides 8.6 MG Tab PO SCH (20:07)
[2022-11-25] MEDS: Rosuvastatin 20 MG Tab PO SCH (20:07)
[2022-11-26] MEDS: Heparin Sodium 5,000 Units/ML Vial SUBCUT SCH ×3 (06:26→20:02)
[2022-11-26] MEDS: Levothyroxine 25 MCG Tab PO SCH (06:26)
[2022-11-26] MEDS: Levothyroxine 50 MCG Tab PO SCH (06:26)
[2022-11-26] MEDS: UBIDECARENONE 10 MG PO SCH (09:15)
[2022-11-26] MEDS: Ascorbic Acid 500 MG Tab PO SCH (09:31)
[2022-11-26] MEDS: Calcium Carbonate/Vitamin D3 1250 MG-5 MCG Tab PO SCH (09:31)
[2022-11-26] MEDS: Magnesium Chloride 64 MG Tab.ER PO SCH ×2 (09:31→20:02)
[2022-11-26] MEDS: Aspirin 325 MG Tab.EC PO SCH (09:31)
[2022-11-26] MEDS: Beta-Carotene (Vitamin A) w/Vitamin C & E plus Minerals Tab PO SCH ×2 (09:31→20:02)
[2022-11-26] MEDS: Lisinopril 10 MG Tab PO SCH (09:31)
[2022-11-26] MEDS: Cholecalciferol (Vitamin D3) 25 MCG Tab PO SCH (09:31)
[2022-11-26] MEDS: Rosuvastatin 20 MG Tab PO SCH (20:02)
[2022-11-26] MEDS: Sennosides 8.6 MG Tab PO SCH (20:02)
[2022-11-27] MEDS: Levothyroxine 50 MCG Tab PO SCH (06:30)
[2022-11-27] MEDS: Levothyroxine 25 MCG Tab PO SCH (06:30)
[2022-11-27] MEDS: Heparin Sodium 5,000 Units/ML Vial SUBCUT SCH ×3 (06:33→20:36)
[2022-11-27] MEDS: Lisinopril 10 MG Tab PO SCH (08:19)
[2022-11-27] MEDS: Ascorbic Acid 500 MG Tab PO SCH (08:19)
[2022-11-27] MEDS: Magnesium Chloride 64 MG Tab.ER PO SCH ×2 (08:19→20:36)
[2022-11-27] MEDS: Calcium Carbonate/Vitamin D3 1250 MG-5 MCG Tab PO SCH (08:20)
[2022-11-27] MEDS: Aspirin 325 MG Tab.EC PO SCH (08:20)
[2022-11-27] MEDS: Cholecalciferol (Vitamin D3) 25 MCG Tab PO SCH (08:20)
[2022-11-27] MEDS: Beta-Carotene (Vitamin A) w/Vitamin C & E plus Minerals Tab PO SCH ×2 (08:20→20:36)
[2022-11-27] MEDS: UBIDECARENONE 10 MG PO SCH (08:22)
[2022-11-27] MEDS: Sennosides 8.6 MG Tab PO SCH (20:36)
[2022-11-27] MEDS: Rosuvastatin 20 MG Tab PO SCH (20:36)
[2022-11-28] MEDS: Heparin Sodium 5,000 Units/ML Vial SUBCUT SCH (06:08)
[2022-11-28] MEDS: Levothyroxine 50 MCG Tab PO SCH (06:08)
[2022-11-28] MEDS: Levothyroxine 25 MCG Tab PO SCH (06:08)
[2022-11-28 07:05] LABS: HEMATOCRIT 33.6 % (33.0-47.0); HEMOGLOBIN 11.2 g/dL (12.0-16.0); MEAN CORPUSCULAR HEMOGLOBIN 31.9 pg (26.0-32.0); MEAN CORPUSCULAR HGB CONC 33.3 g/dL (32.0-36.0); MEAN CORPUSCULAR VOLUME 95.7 fL (78.0-93.0); RED BLOOD CELL COUNT 3.51 x10^6/uL (4.00-5.50); WHITE BLOOD CELL COUNT,WBC 3.3 x10^3/uL (4.0-10.0)
[2022-11-28] MEDS: Cholecalciferol (Vitamin D3) 25 MCG Tab PO SCH (07:59)
[2022-11-28] MEDS: Ascorbic Acid 500 MG Tab PO SCH (08:00)
[2022-11-28] MEDS: Magnesium Chloride 64 MG Tab.ER PO SCH ×2 (08:01→20:18)
[2022-11-28] MEDS: Beta-Carotene (Vitamin A) w/Vitamin C & E plus Minerals Tab PO SCH ×2 (08:01→20:18)
[2022-11-28] MEDS: Aspirin 325 MG Tab.EC PO SCH (08:02)
[2022-11-28] MEDS: Lisinopril 10 MG Tab PO SCH (08:02)
[2022-11-28] MEDS: Calcium Carbonate/Vitamin D3 1250 MG-5 MCG Tab PO SCH (08:04)
[2022-11-28] MEDS: UBIDECARENONE 10 MG PO SCH (08:07)
[2022-11-28] MEDS: Rosuvastatin 20 MG Tab PO SCH (20:18)
[2022-11-28] MEDS: Sennosides 8.6 MG Tab PO SCH (20:18)
[2022-11-28] MEDS: Acetaminophen 325 MG Tab PO PRN (22:29)
[2022-11-29] MEDS: Levothyroxine 50 MCG Tab PO SCH (06:16)
[2022-11-29] MEDS: Levothyroxine 25 MCG Tab PO SCH (06:16)
[2022-11-29 06:57] VITALS: PULSE 62
[2022-11-29 07:33] LABS: A/G RATIO 0.89; ALBUMIN 3.1 g/dL (3.4-5.0); BILIRUBIN TOTAL 0.6 mg/dL (0.2-1.0); CALCIUM 9.1 mg/dL (8.5-10.1); CREATININE 0.8 mg/dL (0.55-1.02); EST CRCL DRUG DOSING (CG) 37.6 mL/min; POTASSIUM,K 4.4 mmol/L (3.5-5.1); PROTEIN TOTAL,TP 6.6 g/dL (6.4-8.2)
[2022-11-29 07:34] LABS: ANION GAP 14.4 mmol/L (5-15)
[2022-11-29] MEDS: Lisinopril 10 MG Tab PO SCH (08:06)
[2022-11-29] MEDS: Beta-Carotene (Vitamin A) w/Vitamin C & E plus Minerals Tab PO SCH (08:06)
[2022-11-29] MEDS: Magnesium Chloride 64 MG Tab.ER PO SCH (08:07)
[2022-11-29] MEDS: Ascorbic Acid 500 MG Tab PO SCH (08:08)
[2022-11-29] MEDS: Aspirin 325 MG Tab.EC PO SCH (08:08)
[2022-11-29] MEDS: Calcium Carbonate/Vitamin D3 1250 MG-5 MCG Tab PO SCH (08:09)
[2022-11-29] MEDS: Cholecalciferol (Vitamin D3) 25 MCG Tab PO SCH (08:10)
[2022-11-29] MEDS: UBIDECARENONE 10 MG PO SCH (08:11)
[2022-11-29 08:12] VITALS: BP 131/68
== END 2022-11-29 12:30 | disposition home or self-care (01) | DRG 391 ==
LOC: VM.MS 15:47
PROVIDERS: ADMIT Family Medicine; ATTEND Family Medicine
DX: K57.92 Diverticulitis of intestine, part unspecified, without perforation or abscess without bleeding (principal); I63.9 Cerebral infarction, unspecified; E03.9 Hypothyroidism, unspecified; E78.5 Hyperlipidemia, unspecified; D50.9 Iron deficiency anemia, unspecified; R47.1 Dysarthria and anarthria; M19.90 Unspecified osteoarthritis, unspecified site; R27.0 Ataxia, unspecified; R47.81 Slurred speech; E78.00 Pure hypercholesterolemia, unspecified; M85.80 Other specified disorders of bone density and structure, unspecified site; I10 Essential (primary) hypertension; Z79.82 Long term (current) use of aspirin; Z79.899 Other long term (current) drug therapy; Z90.710 Acquired absence of both cervix and uterus; Z98.890 Other specified postprocedural states; Z90.49 Acquired absence of other specified parts of digestive tract; Z86.010 Personal history of colon polyps
CPT/HCPCS: 36415; 80048; 80053; 83735; 85027; 95851-GO; 97110-GP; 97116-GP; 97164-GP; 97530-GP; 97535-GO; A9270-GY; J1644

== ENCOUNTER 2023-12-11 16:41 | Emergency (ER) | payer MEDICARE, BC ==
[2023-12-11 17:03] LABS: BASOPHILS PERCENT AUTO 0.4 % (0.2-1.2); EOSINOPHILS ABSOLUTE AUTO 0.2 x10^3/uL (0.0-0.5); EOSINOPHILS PERCENT AUTO 4.8 % (0.0-4.0); HEMATOCRIT 35.1 % (33.0-47.0); HEMOGLOBIN 11.8 g/dL (12.0-16.0); MEAN CORPUSCULAR HEMOGLOBIN 32.1 pg (26.0-32.0); MEAN CORPUSCULAR HGB CONC 33.6 g/dL (32.0-36.0); MEAN CORPUSCULAR VOLUME 95.4 fL (78.0-93.0); MONOCYTES ABSOLUTE AUTO 0.4 x10^3/uL (0.0-0.8); MONOCYTES PERCENT AUTO 8.9 % (2.0-11.0); NEUTROPHILS ABSOLUTE AUTO 2.9 x10^3/uL (1.8-7.7); NEUTROPHILS PERCENT AUTO 63.9 % (50.0-80.0); PLATELET COUNT,PLT 135 x10^3/uL (130-400); RED BLOOD CELL COUNT 3.68 x10^6/uL (4.00-5.50); WHITE BLOOD CELL COUNT,WBC 4.6 x10^3/uL (4.0-10.0)
[2023-12-11 17:24] LABS: A/G RATIO 1.17; ALANINE AMINOTRANSFERASE,ALT 27 U/L (14-59); ALBUMIN 3.5 g/dL (3.4-5.0); ALKALINE PHOSPHATASE 79 U/L (46-116); ANION GAP 14.9 mmol/L (5-15); ASPARTATE AMNIOTRANSFERASE,AST 22 U/L (15-37); BILIRUBIN TOTAL 0.4 mg/dL (0.2-1.0); BLOOD UREA NITROGEN,BUN 18 mg/dL (7-18); CALCIUM 9.1 mg/dL (8.5-10.1); CARBON DIOXIDE,CO2 27 mmol/L (21-32); CHLORIDE,CL 105 mmol/L (98-107); ESTIMATED GFR 55 mL/min (>=60); GLUCOSE RANDOM 137 mg/dL (70-99); POTASSIUM,K 3.9 mmol/L (3.5-5.1); PROTEIN TOTAL,TP 6.5 g/dL (6.4-8.2); SODIUM,NA 143 mmol/L (136-145)
[2023-12-11 17:44] VITALS: BP 129/69; PULSE 64
== END 2023-12-11 17:48 | disposition home or self-care (01) ==
LOC: VM.ED 16:41
DX: R53.82 Chronic fatigue, unspecified (principal); E78.00 Pure hypercholesterolemia, unspecified; E03.9 Hypothyroidism, unspecified; Z90.49 Acquired absence of other specified parts of digestive tract; Z90.710 Acquired absence of both cervix and uterus; Z79.890 Hormone replacement therapy; Z79.82 Long term (current) use of aspirin; Z79.899 Other long term (current) drug therapy; Z88.8 Allergy status to other drugs, medicaments and biological substances
CPT/HCPCS: 36415; 80053; 84443; 84484; 85025; 93005; 99283

== ENCOUNTER 2025-01-02 17:38 | Emergency (ER) | payer MEDICARE, BC ==
[2025-01-02] MEDS ORDERED: Sodium Chloride 0.9% 10 ML Syringe FLUSH PRN (17:56)
[2025-01-02] MEDS: fentaNYL 50 MCG/ML SDV IVPUSH ONE ×2 (18:05→19:30)
[2025-01-02 19:39] LABS: BASOPHILS ABSOLUTE AUTO 0.0 x10^3/uL (0.0-0.2); BASOPHILS PERCENT AUTO 0.2 % (0.2-1.2); EOSINOPHILS ABSOLUTE AUTO 0.2 x10^3/uL (0.0-0.5); EOSINOPHILS PERCENT AUTO 3.4 % (0.0-4.0); IMMATURE GRAN ABSOLUTE AUTO 0.00 x10^3/uL (0.00-0.07); IMMATURE GRAN PERCENT AUTO 0.00 % (0.00-0.43); LYMPHOCYTES ABSOLUTE AUTO 0.7 x10^3/uL (1.0-4.8); LYMPHOCYTES PERCENT AUTO 11.7 % (25.0-50.0); MONOCYTES ABSOLUTE AUTO 0.6 x10^3/uL (0.0-0.8); MONOCYTES PERCENT AUTO 9.7 % (2.0-11.0); NEUTROPHILS ABSOLUTE AUTO 4.7 x10^3/uL (1.8-7.7); NEUTROPHILS PERCENT AUTO 75.0 % (50.0-80.0); PLATELET COUNT,PLT 94 x10^3/uL (130-400); RED BLOOD CELL COUNT 3.51 x10^6/uL (4.00-5.50); WHITE BLOOD CELL COUNT,WBC 6.3 x10^3/uL (4.0-10.0)
[2025-01-02 19:49] LABS: INR 1.1 (0.9-1.1); PTT,PARTIAL THROMBOPLSTIN TIME 24.8 SEC (23.5-33.2)
[2025-01-02 19:54] LABS: A/G RATIO 1.19; ALANINE AMINOTRANSFERASE,ALT 25.0 U/L (14-59); ASPARTATE AMNIOTRANSFERASE,AST 26.0 U/L (15-37); BILIRUBIN TOTAL 1.2 mg/dL (0.2-1.0); BLOOD UREA NITROGEN,BUN 20.0 mg/dL (7-18); CARBON DIOXIDE,CO2 26.0 mmol/L (21-32); CHLORIDE,CL 105.0 mmol/L (98-107); CREATININE 0.6 mg/dL (0.55-1.02); EST CRCL DRUG DOSING (CG) 48.34 mL/min; GLUCOSE RANDOM 102.0 mg/dL (70-99); POTASSIUM,K 3.6 mmol/L (3.5-5.1); PROTEIN TOTAL,TP 5.9 g/dL (6.4-8.2); SODIUM,NA 141.0 mmol/L (136-145)
[2025-01-02 19:55] LABS: ESTIMATED GFR 87.0 mL/min (>=60)
[2025-01-02 21:50] VITALS: BP 165/74; PULSE 50
== END 2025-01-02 21:30 | disposition short-term general hospital (02) ==
LOC: VM.ED 17:38
DX: S72.002A Fracture of unspecified part of neck of left femur, initial encounter for closed fracture (principal); E78.00 Pure hypercholesterolemia, unspecified; E03.9 Hypothyroidism, unspecified; Z88.8 Allergy status to other drugs, medicaments and biological substances; Z79.899 Other long term (current) drug therapy; Z79.890 Hormone replacement therapy; Z90.49 Acquired absence of other specified parts of digestive tract; Z90.710 Acquired absence of both cervix and uterus; W19.XXXA Unspecified fall, initial encounter
CPT/HCPCS: 36415; 51702; 71045; 72170; 80053; 83735; 84484; 85025; 85610; 85730; 93005; 93010; 96361; 96374; 96376; 99284; 99285; J3010; J7030